=== PATIENT | female | born 2000 | race Caucasian/White ===

== ENCOUNTER 2024-03-14 18:15 | Emergency (ER) | payer OTHER, SELFPAY ==
--- NOTE | ~2024-03-14 | XR_ITS ---
EXAMINATION: XR CHEST CLINICAL INFORMATION: Shortness of breath. Cough. COMPARISON: None available. TECHNIQUE: 2 views of the chest were obtained. FINDINGS: The lungs are clear. The cardiomediastinal silhouette is normal in size. There is no pleural effusion or pneumothorax. No acute osseous abnormality. XR/XR chest 2V IMPRESSION: No acute cardiopulmonary findings. Electronically signed by: Agustin Roldan MD 03/14/2024 08:41 PM [facility]
[2024-03-14 18:52] VITALS: BP 145/47; PULSE 85; RESP 20; TEMP 36.9; O2SAT 100; BMI 25.0
== END 2024-03-15 00:54 | disposition left against medical advice (07) ==
PROVIDERS: Emergency Provider Emergency Medicine Emergency Medical Services
DX: R07.9 Chest pain, unspecified (principal)
CPT/HCPCS: 71046; 99281